=== PATIENT | male | born 1985 | race Caucasian/White ===

== ENCOUNTER 2022-01-08 13:48 | Emergency (ER) | payer BC, SELFPAY ==
[2022-01-08 14:00] VITALS: BP 131/76; PULSE 77; RESP 16; TEMP 36.9; O2SAT 100
--- NOTE | 2022-01-08 14:14 | ED.URI ---
HPI - URI/Sore Throat General Chief Complaint: Upper Respiratory Infection Stated Complaint: Sore Throat Time Seen by Provider: 01/08/22 14:14 Source: patient, RN notes reviewed and old records reviewed Mode of arrival: ambulatory Limitations: no limitations History of Present Illness HPI Narrative: 36 [facility] complaints of sore throat since Friday and also episodes of nausea with vomiting X2, denies any diarrhea. Patient reports that he doesn't known if he has had any fevers, has had some cold flashes. Patient denies any cough or congestion or any body aches or ear pain or any shortness of breath. Patient states that he has missed work 2 days and doesn't think he can return tomorrow requests work note. Patient has not had COVID vaccinations or flu shot. He states that he has taken some Ibuprofen for his symptoms.He reports that he has been drinking well but appetite decreased. MD elicited complaint: sore throat and other (nausea and vomiting) Onset (ago): day(s) (2) Treatments prior to arrival: ibuprofen Review of Systems Review of Systems: CONSTITUTIONAL: Denies known fever, chills, or sweats, some cold flashes EYES: Denies visual changes, redness, or discharge. ENT: Denies rhinorrhea, congestion,positive for sore throat, or otalgia. CARDIOVASCULAR: Denies chest pain, palpitations, or edema. RESPIRATORY: Denies cough or dyspnea. GASTROINTESTINAL: Denies abdominal pain,positive for nausea, vomiting X2 with no diarrhea. GENITOURINARY: Denies dysuria or hematuria. SKIN: Denies rash or itching. MUSCULOSKELETAL: Denies back pain, joint pain, or myalgia. NEUROLOGIC: Denies headache, numbness, or weakness. PSYCHIATRIC: Denies anxiety or depression. All systems reviewed & are unremarkable except as noted in HPI and below PMFSH Past Medical History Medical History (Updated 01/09/22 @ 09:05 by Ladonna Cole NP) COVID-19 January 08, 2022 Ear infection Surgical History Surgical History (Updated 01/09/22 @ 09:04 by Ladonna Cole NP) No history of previous surgery Social History Social History (Updated 01/09/22 @ 09:05 by Ladonna Cole NP) Smoking status: Never smoker Alcohol intake: current Alcohol use details: social Substance use: never Substance use type: does not use Living arrangements: with family Comments At time of signature agree with nursing documentation of past medical, surgical, social, and family history. There is no relevant family history pertinent to presenting complaint. Exam Narrative: GENERAL: Well-appearing, well-nourished, and in no acute distress. HEAD: Normocephalic, atraumatic. EYES: PERRLA and EOMI. ENT: Nares clear, no rhinorrhea or epistaxis. Mucous membranes moist, TM's normal with good light reflex, throat with mild redness no lesions exudates or tonsil enlargement CHEST: Clear to auscultation. No respiratory distress. SAO2 100% on room air, no tachypnea HEART: Regular rate and rhythm. No murmur heard. Normal peripheral pulses. ABDOMEN: Soft, nontender, nondistended, normal active bowel sounds. EXTREMITIES: Normal range of motion. No edema. SKIN: Warm, dry, no rash. NEURO: No focal deficits. Alert and oriented x3. Const: Other: les Course Course Level of Care: Express Care Visit Vital Signs Vital signs: Vital Signs Temperature 36.9 C 01/08/22 14:00 Pulse Rate 77 01/08/22 14:00 Respiratory Rate 16 01/08/22 14:00 Blood Pressure 131/76 01/08/22 14:00 Pulse Oximetry 100 01/08/22 14:00 Oxygen Delivery Room Air 01/08/22 14:00 Temperature 36.9 C 01/08/22 14:00 Pulse Rate 77 01/08/22 14:00 Respiratory Rate 16 01/08/22 14:00 Blood Pressure 131/76 01/08/22 14:00 Pulse Oximetry 100 01/08/22 14:00 Oxygen Delivery Room Air 01/08/22 14:00 MDM - URI/Sore Throat Differential Diagnosis Differential diagnosis: Likely upper respiratory infection, otitis media, viral infection, influenza, pha
== END 2022-01-08 14:55 | disposition home or self-care (01) ==
PROVIDERS: Emergency Provider Registered Nurse
DX: U07.1 COVID-19 (principal); Z28.310 Unvaccinated for COVID-19
CPT/HCPCS: 87081; 87426; 87880; 99203; C9803; G0463

== ENCOUNTER 2022-12-03 09:46 | Emergency (ER) | payer BC, SELFPAY ==
[2022-12-03 09:58] VITALS: BP 134/78; PULSE 83; RESP 16; TEMP 37.1; O2SAT 100
--- NOTE | 2022-12-03 10:51 | ED.URI ---
HPI - URI/Sore Throat General Chief Complaint: Skin/Abscess/Foreign Body Stated Complaint: Sinus Time Seen by Provider: 12/03/22 10:51 Source: patient, RN notes reviewed and old records reviewed Mode of arrival: ambulatory Limitations: no limitations History of Present Illness HPI Narrative: 37 year old male who presents to express care with complaints of swelling and redness to his nose since Friday especially to left side of nose. Patient reports that he though he had a pimple on the inside of his left nares which has drained some yellowish white discharge. Patient reports that his nose has progressively become more swollen and red especially to left side of nose with some noted swelling into his face. Patient reports no known fevers, chills or sweats. Patient reports that he has been taking Tylenol and Ibuprofen for his discomfort and he has applied some warm compresses to his nasal area. Patient has noted warmth to skin tissue of his nose with redness. MD elicited complaint: other (swelling and redness of nose with lesion inside left nare) Onset (ago): day(s) (4) Pain scale (0-10): 4 Able to tolerate fluids by mouth: Yes Treatments prior to arrival: acetaminophen, ibuprofen and other (warm compresses) Related Data Allergies Allergy/AdvReac Type Severity Reaction Status Date / Time No Known Allergies Allergy Verified 12/03/22 16:23 Review of Systems Review of Systems: CONSTITUTIONAL: Reports malaise,no chills, no sweats, unknown if fever. EYES: Denies visual changes, redness, or discharge. ENT: Reports rhinorrhea, congestion, sinus pain, no otalgia or sore throat.Redness with swelling and warmth to nose. CARDIOVASCULAR: Denies chest pain, palpitations, or edema. RESPIRATORY: Reports no cough.? Denies dyspnea. GASTROINTESTINAL: Denies abdominal pain, nausea, vomiting, diarrhea SKIN: Denies rash or itching. MUSCULOSKELETAL: Denies myalgia. NEUROLOGIC: Denies headache. All systems reviewed & are unremarkable except as noted in HPI and below PMFSH Past Medical History Medical History COVID-19 January 08, 2022 Ear infection Surgical History Surgical History No history of previous surgery Social History Social History Smoking status: Never smoker Alcohol intake: current Alcohol use details: social Substance use: never Substance use type: does not use Living arrangements: with family Comments At time of signature, agree with nursing past medical, surgical, social and family history. There is no relevant family history pertinent to the presenting complaint Exam Narrative: GENERAL: Well-appearing, well-nourished, and in no acute distress. HEAD: Normocephalic EYES: PERRLA, conjunctivae clear ENT: Nares red especially left, turbinates edematous and erythematous, white to yellow discharge left nares. Mucous membranes moist. TM pearly umanzor with dull light reflex bilaterally; no tragal tenderness. Oropharynx erythematous without lesions. Tonsils not enlarged and without exudate, no drooling, no hoarseness, no trismus, uvula midline. NECK: Supple. No lymphadenopathy CHEST: Clear to auscultation, breath sounds equal. No wheezing, rhonchi, rales, or stridor. No respiratory distress, speaks in full sentences.no cough, SAO2 100% on room air HEART: Regular rate and rhythm. No murmur heard. SKIN: Warm, dry, redness swelling and warmth to nose especially left side NEURO: Alert and oriented x3. PSYCH: Normal mood and affect Course Course Emergency Course: Patient is aware of diagnosis, understands and agrees to treatment plan.? Anticipatory guidance given.? Patient agrees to follow-up as directed and is aware of reasons to seek care at the emergency department. Portions of this record may have been created wi
== END 2022-12-03 11:35 | disposition home or self-care (01) ==
PROVIDERS: Emergency Provider Registered Nurse
DX: J34.0 Abscess, furuncle and carbuncle of nose (principal); J32.9 Chronic sinusitis, unspecified; Z86.16 Personal history of COVID-19
CPT/HCPCS: 99213; G0463

== ENCOUNTER 2024-11-09 12:55 | Emergency (ER) | payer OTHER, SELFPAY ==
--- NOTE | ~2024-11-09 | XR_ITS ---
EXAMINATION: XR ankle RT min 3V DATE: 11/09/2024 13:13 INDICATION: Lateral right ankle pain post injury 2 weeks prior TECHNIQUE: Anteroposterior, oblique, mortise, and lateral views of the right ankle were obtained. COMPARISON: None. FINDINGS: Alignment is normal. No fracture. Heterotopic ossicle near the tip the medial malleolus likely seque la of chronic deltoid ligament sprain. Joint spaces are well maintained. Small Achilles calcaneal spu r. Small right ankle joint effusion. Soft tissue swelling about the ankle both medially and laterally . IMPRESSION: 1. Soft tissue swelling at the medial and lateral right ankle with small joint effusion but no acute osseous abnormality. Reviewed, dictated and finalized at location A.
--- NOTE | 2024-11-09 13:00 | ED.LOWEXIN ---
HPI - Extremity Injury (Lower) General Chief Complaint: Extremity Injury, Lower Stated Complaint: Right Ankle Pain Time Seen by Provider: 11/09/24 13:00 Source: patient, RN notes reviewed and old records reviewed Mode of arrival: ambulatory Limitations: no limitations History of Present Illness HPI Narrative: 39-year-old male presents to the [facility] with right ankle pain since Friday, 2 days. States that he he jumped, landed and rolled his ankle in for sleep. Mild swelling noted. Had taken ibuprofen. Did use ice. Onset (ago): day(s) (2) Treatments prior to arrival: cold therapy and NSAIDS Related Data Home Medications ?Medication ?Instructions ?Recorded ?Confirmed ?Last Taken ?Type No Home Medications 11/09/24 11/09/24 Unknown History Allergies Allergy/AdvReac Type Severity Reaction Status Date / Time No Known Allergies Allergy Verified 11/09/24 13:04 Review of Systems Review of Systems: All systems reviewed & are unremarkable except as noted in HPI and below Constitutional: Constitutional: Reports no additional constitutional complaints ENT: Reports system reviewed and no additional complaints, except as documented Cardiovascular: Cardiovascular: Reports no additional cardiovascular complaints, Denies chest pain and Denies dyspnea Respiratory: Respiratory: Reports no additional respiratory complaints, Denies chest congestion, Denies cough and Denies dyspnea Musculoskeletal: Musculoskeletal: Reports as per HPI, Reports arthralgias and Reports joint swelling Integumentary/Breasts: Skin/Breast: Reports system reviewed and no additional complaints, except as docu [facility] Past Medical History Medical History Ear infection COVID-19 January 08, 2022 Surgical History Surgical History No history of previous surgery Family History Family History Mother Family history non-contributory Social History Social History Smoking status: Never smoker Alcohol intake: current Alcohol use details: social Substance use: never Substance use type: does not use Living arrangements: with family Comments At the time of my signature, I reviewed and agree with the nursing past medical, surgical, social, and family history. There is no relevant family history pertinent to the patient complaint. Exam Const: General: cooperative, healthy appearing, comfortable, no acute distress, well developed, alert and well nourished Nutritional Appearance: well nourished Orientation/consciousness: patient oriented x3 Limitations: no limitations HENMT: Head: normal to inspection Eyes: General: appearance normal, both eyes and all related structures Alignment and Position: alignment normal Neck: Neck: normal visual inspection, full ROM, no lymphadenopathy and no meningeal signs Chest: Chest palpation & inspection: normal inspection of the chest Resp: Effort & Inspection: normal respiratory effort and able to speak in complete sentences Cardio: Rate: regular rate Skin: General skin exam: normal color and no rashes or lesions noted Neuro: General: patient oriented x3, gait normal, moves all extremities and no meningeal signs Cognition (Neuro): normal cognition Speech: normal speech Gait exam (Neuro): Normal gait present Extrem: General: normal to inspection, full ROM, capillary refill normal and normal gait Right lower extremity: ankle Details: tenderness Location: of the lateral malleolus and of the anterior talofibular ligament and swelling Details: laterally and foot Details: normal capillary refill, toes with normal ROM and vascular exam Details: dorsalis pedis pulse present and normal capillary refill; no tenderness Psych: Appearance: grossly normal and well kempt Mental Status: mental status grossly normal Speech and movement: Normal speech and movement present and Clear speech present Affect: normal affect Attitude: cooperative Course Course Level of Care: Express Care Visit Vital Signs Vital signs: Vital Signs Temperature 96.7 F L 11/09/24 13:03 Pulse Rate 69 11/09/24 13:03 Respiratory Rate 16 11/09/24 13:03 Blood Pressure 113/74 11/09/24 13:03 Pulse Oximetry 99 11/09/24 13:03 Oxygen Delivery Room Air 11/09/24 13:03 Temperature 96.7 F L 11/09/24 13:03 Pulse Rate 69 11/09/24 13:03 Respiratory Rate 16 11/09/24 13:03 Blood Pressure 113/74 11/09/24 13:03 Pulse Oximetry 99 11/09/24 13:03 Oxygen Delivery Room Air 11/09/24 13:03 Reviewed MDM - Extremity Injury (Lower) MDM Narrative Medical decision making narrative: Patient sitting in exam room. Patient is nontoxic, vitals are stable. Patient presents with right ankle pain, x-rays negative. Exam or consistent with ankle sprain. Discussed [id number] products. Discussed using an ankle brace. Offered an Marco A wrap. Patient appropriate for outpatient treatment with close follow-up Discharge instructions reviewed with patient, as well as provided in writing per nursing staff. The instructions also include specific and strict return/GO TO THE ER as well as f/u information. All questions have been answered, and the patient deny any further questions with discharge and discharge plan. Some parts of this dictation were generated by voice recognition software and may contain typographical and/or grammatical inaccuracies. Differential Diagnosis Differential diagnosis: Likely ankle sprain and strain and ankle fracture Imaging Data Radiologist's impression: EXAMINATION: XR ankle RT min 3V DATE: 11/09/2024 13:13 INDICATION: Lateral right ankle pain post injury 2 weeks prior TECHNIQUE: Anteroposterior, oblique, mortise, and lateral views of the right ankle were obtained. COMPARISON: None. FINDINGS: Alignment is normal. No fracture. Heterotopic ossicle near the tip the medial malleolus likely sequela of chronic deltoid ligament sprain. Joint spaces are well maintained. Small Achilles calcaneal spur. Small right ankle joint effusion. Soft tissue swelling about the ankle both medially and laterally. IMPRESSION: 1. Soft tissue swelling at the medial and lateral right ankle with small joint effusion but no acute osseous abnormality. Critical Care Time Critical Care Time Critical Care Time: No Discharge Plan Discharge Clinical Impression: Right ankle sprain Patient Disposition: Home Condition: Stable Instructions: Antibiotic Form, Ankle Sprain (ED) Additional Instructions: Your Xray did not show a fracture. Wear good supportive shoes at all times. Ice should be applied to help reduce swelling. It can be used for 20 to 30 minutes, every 2-3 hours while awake. Do not apply ice directly to your skin. ankle braces or marco a-wraps will help support your injured ankle. You can alternate ibuprofen 600mg and Tylenol 650mg every 4 hours as needed for pain Please schedule a follow-up visit with your personal physician for further evaluation and treatment within 2 weeks especially if symptoms persist. For new or worsening symptoms go directly to the emergency room Patient Language: Upper Sorbian Prescriptions: No Action No Home Medications Follow-up/Referrals: PHYSICIAN,UTILITY MECHANIC [Primary Care Provider] - Stand Alone Forms: Work/School Release IP Time of Disposition: 13:41
[2024-11-09 13:03] VITALS: BP 113/74; PULSE 69; RESP 16; TEMP 35.9; O2SAT 99
== END 2024-11-09 13:45 | disposition home or self-care (01) ==
PROVIDERS: Emergency Provider Nurse Practitioner
DX: S93.401A Sprain of unspecified ligament of right ankle, initial encounter (principal); X50.0XXA Overexertion from strenuous movement or load, initial encounter
CPT/HCPCS: 73610; 99213; G0463